=== PATIENT | male | born 1980 | race Hispanic/Latino ===

== ENCOUNTER 2017-06-14 12:14 | Emergency (ER) | payer MEDICAID, OTHER ==
[2017-06-14 12:27] VITALS: BMI 34.8
--- NOTE | 2017-06-14 12:42 | ED PDOC ---
Arrival/HPI - General Time Seen by Provider: 06/14/17 12:32 - History of Present Illness Narrative History of Present Illness (Text): 06/14/17 12:34 A 37 year old male, who has a history of multiple anxiety attacks, presents to the emergency department complaining of chest pain for 1 week. Patient reports he experiences this pain only while at work under stressful situations. He states while at work today he felt persistent chest pain for 30 minutes which spontaneously remitted. 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 Patient denies any fever, chills, nausea, vomiting, abdominal pain, shortness of breath or any other complaints. No history of diabetes, hypertension, tobacco or drug use. Patient denies any personal cardiac history or sudden/ early cardiac deaths in the family. No recent travel, surgery, long periods of immobilization or airplane trips. Time/Duration: Other (today) Symptom Course: Resolved Context: Work Past Medical History - Provider Review Nursing Documentation Reviewed: Yes Family/Social History - Physician Review Nursing Documentation Reviewed: Yes Family/Social History: No Known Family HX Allergies/Home Meds Allergies/Adverse Reactions: Allergies No Known Allergies Allergy (Verified 06/14/17 12:26) Home Medications: Home Meds Medication Instructions Recorded Confirmed No Known Home Med 06/14/17 06/14/17 Review of Systems - Physician Review All systems were reviewed & negative as marked: Yes - Review of Systems Constitutional: absent: Fevers, Night Sweats Respiratory: absent: SOB Cardiovascular: Chest Pain (associated with stress) Gastrointestinal: absent: Abdominal Pain, Nausea, Vomiting Physical Exam Vital Signs Temp Pulse Resp BP Pulse Ox 06/14/17 12:28 98.2 F 87 18 130/81 98 Appearance: Positive for: Well-Appearing, Non-Toxic, Comfortable Pain Distress: None Mental Status: Positive for: Alert and Oriented X 3 - Systems Exam Head: Present: Atraumatic, Normocephalic Pupils: Present: PERRL Extroacular Muscles: Present: EOMI Conjunctiva: Present: Normal Mouth: Present: Moist Mucous Membranes Neck: Present: Normal Range of Motion Respiratory/Chest: Present: Clear to Auscultation, Good Air Exchange. No: Respiratory Distress, Accessory Muscle Use Cardiovascular: Present: Regular Rate and Rhythm, Normal S1, S2. No: Murmurs Abdomen: Present: Normal Bowel Sounds. No: Tenderness, Distention, Peritoneal Signs Back: Present: Normal Inspection Upper Extremity: Present: Normal Inspection. No: Cyanosis, Edema Lower Extremity: Present: Normal Inspection. No: Edema Neurological: Present: GCS=15, CN II-XII Intact, Speech Normal Skin: Present: Warm, Dry, Normal Color. No: Rashes Psychiatric: Present: Alert, Oriented x 3, Normal Insight, Normal Concentration Medical Decision Making ED Course and Treatment: 06/14/17 12:34 Impression: A 37 year old male with episodes of chest pain associated with emotional stress Plan: -- Chest xray -- EKG -- Reassess and disposition Progress Notes: EKG shows NSR at 63 BPM with normal intervals, no ST changes. Interpreted by me. 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 Report Date : 06/14/2017 13:44:31 Procedure: Chest xray Dictator : Floyd Bey MD IMPRESSION: No active disease. 06/14/17 13:46 Patient is perc negative. He has no cardiac risk factors. He has normal ekg. He has normal Cxray. He only has chest pain while at work. He was instructed on importance of following up with cardiology. - RAD Interpretation Radiology Orders: 06/14/17 12:32 CHEST TWO VIEWS (PA/LAT) [RAD] Stat - Medication Orders Current Medication Orders: Discontinued Medications Ketorolac Tromethamine (Toradol) 30 mg IM STAT STA Stop: 06/14/17 12:33 Last Admin: 06/14/17 12:55 Dose: 30 mg SARI Pain Assessment Document 06/14/17 12:55 LA (Rec: 06/14/17 12:59 LA [id number]) Pain Reassessment Is this a pain reassessment? No Sleep Is patient sleeping during reassessment? No Presence of Pain Presence of Pain Yes Pain Scale Used Pain Scale Used Numeric Location Left, Right or Bilateral Left Pain Location Body Site Chest Description Description Intermittent IM Administration Charges Document 06/14/17 12:55 LA (Rec: 06/14/17 12:59 LA [id number]) Charges for Administration # of IM Administrations 1 Re-Assess: SARI Pain Assessment Document 06/14/17 13:55 LA (Rec: 06/14/17 14:04 LA [id number]) Pain Reassessment Is this a pain reassessment? Yes Sleep Is patient sleeping during reassessment? No Presence of Pain Presence of Pain No - Scribe Statement The provider has reviewed the documentation as recorded by the Scribe Fiordaliza Hunter Provider Scribe Attestation: All medical record entries made by the Scribe were at my direction and personally dictated by me. I have reviewed the chart and agree that the record accurately reflects my personal performance of the history, physical exam, medical decision making, and the department course for this patient. I have also personally directed, reviewed, and agree with the discharge instructions and disposition. Disposition/Present on Arrival - Present on Arrival Any Indicators Present on Arrival: No - Disposition Have Diagnosis and Disposition been Completed?: Yes Diagnosis: Chest pain Disposition: HOME/ ROUTINE Disposition Time: 13:47 Patient Plan: Discharge Condition: GOOD Discharge Instructions (ExitCare): Chest Pain (ED), Stress (ED) Additional Instructions: Follow-up with PMD within 2 days. Follow-up with cardiology within 2 days. Return to ED if condition worsens. Referrals: [facility], [Primary Care Provider] - Follow up with primary Floyd Young MD [Staff Provider] - Follow up with primary Forms: [email or web address] (Turkmen)
[2017-06-14 12:57] VITALS: BP 130/81; PULSE 87; RESP 18; TEMP 98.2; O2SAT 98
--- NOTE | 2017-06-14 13:46 | RAD ---
HISTORY: chest pain COMPARISON: No prior. TECHNIQUE: Chest PA and lateral FINDINGS: LUNGS: No active pulmonary disease. PLEURA: No significant pleural effusion identified. No pneumothorax apparent. CARDIOVASCULAR: Normal. OSSEOUS STRUCTURES: No significant abnormalities. VISUALIZED UPPER ABDOMEN: Normal. OTHER FINDINGS: None. IMPRESSION: No active disease.
--- NOTE | 2017-06-14 16:08 | CARD ---
APPROVED REPORT EKG Measurement Heart [id number] <Conclusion> Normal sinus rhythm Normal ECG
== END 2017-06-14 14:07 | disposition home or self-care (01) ==
LOC: ED 12:14
DX: R07.9 Chest pain, unspecified (principal)
CPT/HCPCS: 71046; 93005; 96372; 99283; J1885